=== PATIENT | male | born 1945 | race Native Hawaiian/Other Pacific Islander ===

== ENCOUNTER 2017-01-30 11:17 | Outpatient (CLI) | payer OTHER ==
[~2017-01-30 11:17] MED LIST: ASA LO-DOSE81 MG OR; CADUET10 MG/10 M OR; METO50TA27 PO; PLAVIX75 MG PO; RANO500T PO; SIMV40TA57 PO
== END 2017-01-30 19:15 | disposition home or self-care (01) ==
LOC: RAD 11:17
DX: M25.571 Pain in right ankle and joints of right foot (principal)

== ENCOUNTER 2017-03-07 19:39 | Emergency (ER) | payer OTHER ==
[~2017-03-07] VITALS: Ht 182.9 cm; Wt 74.8 kg
[2017-03-07] MEDS ORDERED: HYDR10TA47 PO (20:01)
[2017-03-07 20:46] VITALS: BP 126/79; TEMP 98.1
== END 2017-03-07 20:49 | disposition home or self-care (01) ==
LOC: ED 19:39
DX: S51.811A Laceration without foreign body of right forearm, initial encounter (principal); S50.11XA Contusion of right forearm, initial encounter; X58.XXXA Exposure to other specified factors, initial encounter; Y92.098 Other place in other non-institutional residence as the place of occurrence of the external cause
CPT/HCPCS: 85610; 99283

== ENCOUNTER 2017-05-29 17:52 | Emergency (ER) | payer OTHER ==
[~2017-05-29] VITALS: Ht 182.9 cm; Wt 66.2 kg
[2017-05-29 17:52] VITALS: TEMP 98
[~2017-05-29 17:52] MED LIST changes: +HYDR10TA47 PO
[2017-05-29 18:26] LABS: PLATELET COUNT 185 K/uL (142-355)
[2017-05-29 18:27] LABS: POTASSIUM 4.2 mmol/L (3.6-5.2)
[2017-05-29 18:41] LABS: PARTIAL THROMBOPLASTIN TIME 32.5 SECONDS (24.5-33.6)
[2017-05-29 19:35] VITALS: BP 160/84
== END 2017-05-29 19:35 | disposition short-term general hospital (02) ==
LOC: ED 17:52
PROVIDERS: Specialist
DX: I63.9 Cerebral infarction, unspecified (principal); I51.9 Heart disease, unspecified; I25.10 Atherosclerotic heart disease of native coronary artery without angina pectoris
CPT/HCPCS: 36415; 80053; 84484; 85027; 85610; 85730; 93005; 99285

== ENCOUNTER 2017-07-01 00:32 | Outpatient (CLI) | payer OTHER ==
[2017-07-01] MEDS ORDERED: ONDA4TAB3 PO (01:02)
[2017-07-01] MEDS ORDERED: METOCLOPRAM10 MG PO (01:03)
[2017-07-01] MEDS ORDERED: PROCHLORPER10 MG PO (01:04)
[2017-07-01] MEDS ORDERED: BREO ELLIPTA 201 INH IN (01:05)
[2017-07-01] MEDS ORDERED: LEVETIRACETA1000 MG PO (01:05)
[2017-07-01] MEDS ORDERED: METOPROLOL25 M1 PO (01:06)
== END 2017-07-01 00:35 | disposition short-term general hospital (02) ==
LOC: AMB 00:32
DX: G81.94 Hemiplegia, unspecified affecting left nondominant side (principal); W18.39XA Other fall on same level, initial encounter; Y92.098 Other place in other non-institutional residence as the place of occurrence of the external cause
CPT/HCPCS: A0425; A0427

== ENCOUNTER 2017-07-01 00:40 | Emergency (ER) | payer OTHER ==
[~2017-07-01] VITALS: Ht 182.9 cm; Wt 72.6 kg
[2017-07-01] MEDS ORDERED: ONDA4TAB3 PO (01:02)
[2017-07-01] MEDS ORDERED: METOCLOPRAM10 MG PO (01:03)
[2017-07-01] MEDS ORDERED: PROCHLORPER10 MG PO (01:04)
[2017-07-01] MEDS ORDERED: BREO ELLIPTA 201 INH IN (01:05)
[2017-07-01] MEDS ORDERED: LEVETIRACETA1000 MG PO (01:05)
[2017-07-01] MEDS ORDERED: METOPROLOL25 M1 PO (01:06)
[2017-07-01 01:54] LABS: PLATELET COUNT 150 K/uL (142-355)
[2017-07-01 02:12] LABS: POTASSIUM 3.7 mmol/L (3.6-5.2)
[2017-07-01 05:02] VITALS: BP 145/89
== END 2017-07-01 05:05 | disposition short-term general hospital (02) ==
LOC: ED 00:40
PROVIDERS: Specialist
DX: I63.9 Cerebral infarction, unspecified (principal); R53.1 Weakness; W18.39XA Other fall on same level, initial encounter; Y92.89 Other specified places as the place of occurrence of the external cause
CPT/HCPCS: 80053; 82550; 82553; 83735; 84100; 84484; 85027; 96365; 96366; 96375; 99284; J1720; J2060; J3411; J3475; J3490

== ENCOUNTER 2017-07-01 05:00 | Outpatient (CLI) | payer OTHER ==
[~2017-07-01 05:00] MED LIST changes: +BREO ELLIPTA 201 INH IN; +LEVETIRACETA1000 MG PO; +METOCLOPRAM10 MG PO; +METOPROLOL25 M1 PO; +ONDA4TAB3 PO; +PROCHLORPER10 MG PO
== END 2017-07-01 06:07 | disposition short-term general hospital (02) ==
LOC: AMB 05:00
DX: I63.9 Cerebral infarction, unspecified (principal); R53.1 Weakness; W18.39XA Other fall on same level, initial encounter; Y92.89 Other specified places as the place of occurrence of the external cause
CPT/HCPCS: A0425; A0427

== ENCOUNTER 2017-07-09 01:58 | Outpatient (CLI) | payer OTHER ==
[2017-07-09] MEDS ORDERED: CLOP75TA2 PO (02:21)
== END 2017-07-09 02:02 | disposition short-term general hospital (02) ==
LOC: AMB 01:58
DX: R31.9 Hematuria, unspecified (principal)
CPT/HCPCS: A0425; A0427

== ENCOUNTER 2017-07-09 02:06 | Emergency (ER) | payer OTHER ==
[~2017-07-09] VITALS: Ht 182.9 cm; Wt 66.7 kg
[2017-07-09] MEDS ORDERED: CLOP75TA2 PO (02:21)
[2017-07-09 02:30] LABS: PLATELET COUNT 158 K/uL (142-355)
[2017-07-09 02:53] LABS: PARTIAL THROMBOPLASTIN TIME 27.4 SECONDS (24.5-33.6)
[2017-07-09 03:02] LABS: POTASSIUM 3.5 mmol/L (3.6-5.2)
[2017-07-09 06:15] VITALS: BP 153/91; TEMP 98.4
== END 2017-07-09 06:17 | disposition home or self-care (01) ==
LOC: ED 02:06
DX: R31.0 Gross hematuria (principal); N30.81 Other cystitis with hematuria; N41.8 Other inflammatory diseases of prostate
CPT/HCPCS: 36415; 51702; 80053; 81000; 85027; 85610; 85730; 96361; 96365; 99284; J0696; Q9963

== ENCOUNTER 2017-07-10 12:36 | Outpatient (CLI) | payer OTHER ==
[~2017-07-10 12:36] MED LIST changes: +CLOP75TA2 PO
== END 2017-07-10 12:39 | disposition short-term general hospital (02) ==
LOC: AMB 12:36
DX: R53.1 Weakness (principal); R50.9 Fever, unspecified; R41.82 Altered mental status, unspecified
CPT/HCPCS: A0425; A0427

== ENCOUNTER 2017-07-10 12:51 | Emergency (ER) | payer OTHER ==
[~2017-07-10] VITALS: Ht 185.4 cm; Wt 68.0 kg
[2017-07-10 14:12] LABS: PLATELET COUNT 132 K/uL (142-355)
[2017-07-10 14:21] LABS: POTASSIUM 4.1 mmol/L (3.6-5.2)
[2017-07-10 15:15] VITALS: BP 117/76
[2017-07-10 15:29] VITALS: TEMP 99.2
== END 2017-07-10 16:30 | disposition short-term general hospital (02) ==
LOC: ED 12:51
DX: R53.1 Weakness (principal); R79.89 Other specified abnormal findings of blood chemistry
CPT/HCPCS: 80053; 81000; 82550; 84484; 85027; 93005; 99284

== ENCOUNTER 2017-07-10 16:32 | Outpatient (CLI) | payer OTHER | END 2017-07-10 17:02 | disposition short-term general hospital (02) | LOC: AMB 16:32 | DX: R53.1 Weakness (principal); R79.89 Other specified abnormal findings of blood chemistry | CPT/HCPCS: A0425; A0429 ==